=== PATIENT | male | born 1960 | race Hispanic/Latino ===

== ENCOUNTER 2019-03-30 15:38 | Emergency (ER) | payer SELFPAY ==
--- NOTE | 2019-03-30 17:18 | Emergency Department Report ---
ED Head Trauma HPI - General Stated complaint: NOSE INJURY FROM GROUND LEVEL FALL Time Seen by Provider: 03/30/19 17:04 Source: patient - History of Present Illness Initial comments: 58-year-old male, history of alcoholism, presents to ED status post ground level fall. Pt was in a parking lot. Reports pain to nose, small laceration present. Pt states he drinks daily. Brought in by EMS. Complaint: head injury -: This afternoon Mechanism of Injury: mechanical fall Location: face Loss of Consciousness: unsure Place: outdoors Severity: mild Other Injuries: laceration Associated Symptoms: denies other symptoms. denies: vision changes, nausea, vomiting, numbness, weakness, tingling, neck pain - Related Data Previous Rx's Medication Instructions Recorded Last Taken Type Thiamine [Vitamin B-1] 100 mg PO QDAY #7 tablet 10/06/14 Unknown Rx Allergies/Adverse reactions: Allergies Allergy/AdvReac Type Severity Reaction Status Date / Time No Known Allergies Allergy Verified 01/24/13 22:45 ED Review of Systems ROS: Stated complaint: NOSE INJURY FROM GROUND LEVEL FALL Other details as noted in HPI Comment: All other systems reviewed and negative Gastrointestinal: denies: nausea, vomiting Neurological: denies: headache, weakness, numbness, paresthesias ED Past Medical Hx - Past Medical History Additional medical history: alcohol abuse - Surgical History Additional Surgical History: Peptic ulcer surgery - Social History Smoking Status: Current Every Day Smoker Substance Use Type: Alcohol - Medications Home Medications: Home Medications Medication Instructions Recorded Confirmed Last Taken Type Thiamine [Vitamin B-1] 100 mg PO QDAY #7 tablet 10/06/14 Unknown Rx ED Physical Exam - General General appearance: alert, in no apparent distress - Head Head exam: Present: other (small 1.5 cm laceration to bridge of nose, no active bleeding present) - Eye Eye exam: Present: normal appearance, PERRL, EOMI - ENT ENT exam: Present: mucous membranes moist - Neck Neck exam: Present: normal inspection, full ROM. Absent: tenderness - Respiratory Respiratory exam: Present: normal lung sounds bilaterally. Absent: respiratory distress - Cardiovascular Cardiovascular Exam: Present: regular rate, normal rhythm - GI/Abdominal GI/Abdominal exam: Present: soft. Absent: distended, tenderness - Extremities Exam Extremities exam: Present: normal inspection, full ROM - Back Exam Back exam: Present: normal inspection. Absent: vertebral tenderness - Neurological Exam Neurological exam: Present: alert, oriented X3, normal gait - Psychiatric Psychiatric exam: Present: normal affect, normal mood - Skin Skin exam: Present: warm, dry, intact, normal color ED Course - Reevaluation(s) Reevaluation #1: 03/30/19 18:50 Pt seems to have eloped after eating his meal tray. He is not in his room. Critical care attestation.: If time is entered above; I have spent that time in minutes in the direct care of this critically ill patient, excluding procedure time. ED Disposition Clinical Impression: Fall, Simple laceration of nose Disposition: Z-07 ELOPED Is pt being admited?: No Condition: Stable Referrals: PRIMARY CARE, [Primary Care Provider] - 3-5 Days
== END 2019-03-30 18:51 | disposition left against medical advice (07) ==
LOC: ED 15:38
DX: S01.21XA Laceration without foreign body of nose, initial encounter (principal); F17.200 Nicotine dependence, unspecified, uncomplicated; Z79.899 Other long term (current) drug therapy; W18.39XA Other fall on same level, initial encounter; Y93.89 Activity, other specified; Y92.89 Other specified places as the place of occurrence of the external cause; Y99.8 Other external cause status

== ENCOUNTER 2020-11-09 00:25 | Emergency (ER) | payer SELFPAY ==
--- NOTE | 2020-11-09 00:58 | Event Note ---
ED Screening Note Date of service: 11/09/20 Time: 00:56 ED Screening Note: 59-year-old male patient presents to the emergency department after reportedly drinking alcohol. Patient states "rescue" brought him to the emergency department. he is unsure why he was transported to the emergency department. Patient thinks he may have fallen but he is unsure. He is unable to quantify how much alcohol he has consumed tonight. Further history is limited secondary to mental status. General: Awake. Clinically intoxicated. Neck: Supple. Full range of motion intact. Cardiovascular: Normal peripheral perfusion. Pulmonary: No respiratory distress. Patient is speaking without use of accessory muscles. Skin: No apparent rashes or lesions. Neurological: Slurred speech. Musculoskeletal: Moves all four extremities spontaneously with normal range of motion. Psych: Cooperative. Labs ordered. Imaging deferred to additional ED providers following further history and comprehensive physical examination. I have greeted and performed a focused rapid initial assessment of this patient. A comprehensive ED assessment and evaluation of the patient, analysis of all test results, and completion of the medical decision-making process will be conducted by additional ED providers. This initial assessment/diagnostic orders/clinical plan/treatment(s) is/are subject to change based on patients health status, clinical progression and re-assessment. Further treatment and workup at subsequent clinical provider's discretion. Patient/guardian urged not to elope from the ED as their condition may be serious if not clinically assessed and managed.
--- NOTE | 2020-11-09 01:17 | Emergency Department Report ---
ED Alcohol HPI - General Chief Complaint: Alcohol Stated Complaint: ETOH Time Seen by Provider: 11/09/20 01:13 Source: patient Mode of arrival: Wheelchair Limitations: Altered Mental Status - History of Present Illness Initial Comments: Patient is a 59-year-old male who presents emergency room for alcohol intoxication. Patient brought in by EMS. Patient states that he was outside and wandering to have public intoxication. Patient states that he had come to the hospital by the [facility]. Patient states that he chose to come to the hospital. Patient denies complaints. Patient denies fall. Patient denies any injury. Patient states that he just simply drinks too much. Patient denies recent travel. Patient denies recent international travel. P atient denies exposure to the novel coronavirus. Patient denies sick contacts. Patient denies fever and chills. Patient denies cough. Patient denies diarrhea. Patient denies coming in contact with anybody with symptoms of the novel coronavirus. Patient states he is not vaccinated against COVID-19. MD Complaint: alcohol intoxication Last Drink: just [employer] -: minute(s) Chronic Alcohol Use: Yes Previous Visits for Alcohol Intoxication?: Yes Recent Trauma: No Associated Symptoms: denies other symptoms. denies: nausea, vomiting, syncope, seizure, diaphoresis, tremors, abdominal pain, hematemesis, melena, depression, suicidality Treatments Prior to Arrival: none - Related Data Previous Rx's Medication Instructions Recorded Last Taken Type Thiamine [Vitamin B-1] 100 mg PO QDAY #7 tablet 10/06/14 11/08/20 Rx 100 mg Allergies Allergy/AdvReac Type Severity Reaction Status Date / Time No Known Allergies Allergy Verified 01/24/13 22:45 ED Review of Systems ROS: Stated complaint: ETOH Other details as noted in HPI Constitutional: denies: chills, fever Eyes: denies: eye pain, eye discharge, vision change ENT: denies: ear pain, throat pain Respiratory: denies: cough, shortness of breath, wheezing Cardiovascular: denies: chest pain, palpitations Endocrine: no symptoms reported Gastrointestinal: denies: abdominal pain, nausea, diarrhea Genitourinary: denies: urgency, dysuria Musculoskeletal: denies: back pain, joint swelling, arthralgia Skin: denies: rash, lesions Neurological: denies: headache, weakness, paresthesias Psychiatric: denies: anxiety, depression Hematological/Lymphatic: denies: easy bleeding, easy bruising ED Past Medical Hx - Past Medical History Previous Medical History?: Yes Additional medical history: alcohol abuse - Surgical History Past Surgical History?: Yes Additional Surgical History: Peptic ulcer surgery - Family History Family history: no significant - Social History Smoking Status: Current Every Day Smoker Substance Use Type: Alcohol - Medications Home Medications: Home Medications Medication Instructions Recorded Confirmed Last Taken Type Thiamine [Vitamin B-1] 100 mg PO QDAY #7 tablet 10/06/14 11/09/20 11/08/20 Rx 100 mg ED Physical Exam - General Limitations: No Limitations General appearance: alert, in no apparent distress - Head Head exam: Present: atraumatic, normocephalic - Eye Eye exam: Present: normal appearance - ENT ENT exam: Present: mucous membranes moist - Neck Neck exam: Present: normal inspection - Respiratory Respiratory exam: Present: normal lung sounds bilaterally. Absent: respiratory distress - Cardiovascular Cardiovascular Exam: Present: regular rate, normal rhythm. Absent: systolic murmur, diastolic murmur, rubs, gallop - GI/Abdominal GI/Abdominal exam: Present: soft, normal bowel sounds - Rectal Rectal exam: Present: deferred - Extremities Exam Extremities exam: Present: normal inspection - Back Exam Back exam: Present: normal inspection - Neurological Exam Neurological exam: Present: alert, oriented X3 - Psychiatric Psychiatric exam: Present: normal affect, normal mood - Skin Skin exam: Present: warm, dry, intact, normal color. Absent: rash ED Course Vital Signs 11/09/20 11/09/20 11/09/20 00:34 07:42 07:44 Temperature 97.5 F L 97.8 F Pulse Rate 94 H 68 Respiratory 18 14 Rate Blood Pressure 127/84 Blood Pressure 129/78 [Left] O2 Sat by Pulse 96 96 96 Oximetry - Reevaluation(s) Reevaluation #1: Patient is answering questions appropriately. Patient is alert and oriented x4. 11/09/20 04:27 Reevaluation #2: No change in mental status. Patient is resting comfortably in the room. 11/09/20 05:27 Reevaluation #3: We will continue to monitor patient until the patient alcohol level decreases some. Once the patient's alcohol is less than 2 the patient can be discharged home. Patient is clinically sober. I discussed all results and clinical findings with patient. I discussed plan of care with patient. Patient agrees with plan of care. Patient is stable for discharge. Patient will be discharged home. Patient given discharge instructions. Patient voiced understanding of discharge instructions. 11/09/20 06:07 ED Medical Decision Making - Lab Data Result diagrams: 11/09/20 01:55 11/09/20 01:55 - Medical Decision Making Patient is a 59-year-old male that presents emergency room for acute intoxication and needing to sober up. Patient monitored for several hours. Patient given IV fluids and a banana bag. Patient had labs done which were essentially unremarkable except for elevated alcohol level. Patient was monitored until he was clinically sober. Once the patient was clinically sober, the patient did not require any further emergency medical services. Patient not require inpatient service. Patient stable for discharge. I discussed all results and clinical findings with patient. I discussed plan of care with patient. Patient agrees with plan of care. Patient is stable for discharge. Patient will be discharged home. Patient given discharge instructions. Patient voiced understanding of discharge instructions. - Differential Diagnosis Acute intoxication. Critical care attestation.: If time is entered above; I have spent that time in minutes in the direct care of this critically ill patient, excluding procedure time. ED Disposition Clinical Impression: Alcohol intoxication Qualifiers: Complication of substance-induced condition: uncomplicated Qualified Code(s): F10.920 - Alcohol use, unspecified with intoxication, uncomplicated Disposition: 01 HOME / SELF CARE / HOMELESS Is pt being admited?: No Does the pt Need Aspirin: No Condition: Stable Instructions: Binge-Drinking Information, Adult Additional Instructions: Patient to follow-up with primary care in 2 to 3 days. Patient to reduce alcohol intake. Patient to rest. Patient to increase water. Patient to avoid driving. Patient to take Tylenol or ibuprofen as needed for pain. Patient to return to the ER if condition worsens, changes or new symptoms arise. Referrals: PRIMARY CARE,MD [Primary Care Provider] - 2-3 Days Time of Disposition: 06:15
[2020-11-09 02:18] LABS: Basophils % (Auto) 0.3 % (0.0-1.8); Eosinophils # (Auto) 0.1 K/mm3 (0.0-0.4); Hematocrit 40.4 % (35.5-45.6); Mean Corpuscular HGB Conc 35 % (32-34); Mean Corpuscular Volume 90 fl (84-94); Monocytes # (Auto) 0.8 K/mm3 (0.0-0.8); Monocytes % (Auto) 11.8 % (0.0-7.3); Platelet Count 294 K/mm3 (140-440); Red Cell Distribution Width 13.5 % (13.2-15.2)
[2020-11-09 02:35] LABS: Alanine Aminotransferase 19 units/L (7-56); Albumin 4.4 g/dL (3.9-5); Blood Urea Nitrogen 10 mg/dL (9-20); Calcium 8.8 mg/dL (8.4-10.2); Hemolysis Index 16
[2020-11-09 02:37] LABS: BUN/Creatinine Ratio 14
[2020-11-09] MEDS ORDERED: SODIUM CHLORIDE 0.9% 1000 ML 1,000 ML IV ONE (03:31)
[2020-11-09] MEDS ORDERED: THIAMINE 100 MG, FOLIC ACID 1 MG, MULTIPLE VITAMIN INJ, ADULT 10 ML in SODIUM CHLORIDE ... IV ONE (03:31)
[2020-11-09 07:47] VITALS: BP 129/78
== END 2020-11-09 08:34 | disposition home or self-care (01) ==
LOC: ED 00:25
DX: F10.120 Alcohol abuse with intoxication, uncomplicated (principal); Z98.890 Other specified postprocedural states; F17.200 Nicotine dependence, unspecified, uncomplicated
CPT/HCPCS: 36415; 80053; 83735; 84100; 85025; 96365; 96366; 99283; J3411; J7030; 80320; G0480